=== PATIENT | female | born 1950 | race Caucasian/White ===

== ENCOUNTER 2018-02-18 15:02 | Emergency (ER) | payer OTHER, MEDICARE ==
[~2018-02-18] VITALS: Ht 157.5 cm; Wt 80.7 kg
[2018-02-18 15:05] VITALS: BP 151/100
--- NOTE | 2018-02-18 16:54 | RADIOLOGY REPORT ---
EXAMINATION: XR CHEST CLINICAL INFORMATION: Wheezing, dyspnea COMPARISON: None TECHNIQUE: 2 views of the chest were obtained. FINDINGS: Low lung volumes. No focal consolidation or mass. Normal pulmonary vascularity. No pleural effusion or pneumothorax. Normal heart size. Mildly tortuous aorta. Degenerative changes of the thoracic spine. Degenerative changes of the shoulders and acromioclavicular joints. IMPRESSION: Low lung volumes but no acute pulmonary disease. No focal consolidation to suggest pneumonia.
[2018-02-18] MEDS ORDERED: PROVENTIL HFA6.7 GM INH (17:18)
[2018-02-18] MEDS ORDERED: MEDROL4 M2 PO (17:18)
--- NOTE | 2018-02-18 17:19 | ED INFLUENZA/URI COMPLAINT ---
History of Present Illness General Chief Complaint: General Adult Stated Complaint: CHEST CONGESTION,WHEEZING Source: patient, family Exam Limitations: no limitations Vital Signs & Intake/Output Vital Signs & Intake/Output Vital Signs Date Time Temp Pulse Resp B/P B/P Pulse O2 O2 Flow FiO2 Mean Ox Delivery Rate 02/18 1607 Room Air 02/18 1505 98.8 100 18 151/100 98 Room Air Allergies Coded Allergies: No Known Allergies (02/18/18) Reconcile Medications Albuterol Sulfate (Proventil Hfa) 90 MCG HFA.AER.AD 2 PUF INH Q4 PRN wheezing Methylprednisolone. (Medrol) 4 MG TAB.DS.PK 1 DP PO AD bronchitis 6 on day 1 then reduce by one tablet daily until gone Triage Note: 67 YO FEMALE TO TRIAGE C/O WHEEZING, PRODUCTIVE COUGH. STATES RECENTLY BEING TREATED FOR R EAR INFECTION. AFEBRILE Triage Nurses Notes Reviewed? yes Onset: Gradual Duration: week(s): Timing: recent history Severity: moderate HPI: 67YO FEMALE with hx of hypothyroidism presents to ED complaining of cough, congestion, sore throat, ear pain. Patient is here with her who is also being evaluated for similar symptoms. Patient states he was seen in urgent care and started on antibiotics for possible ear infection. Reports her sore throat and ear pain have improved however cough is persistent. Patient also reports wheezing, worse at night. Patient denies abdominal pain, chest pain, vomiting, hemoptysis. (Nathalia ORTIZ,Aishwarya Paul) Past History Travel History Traveled to [place] past 21 day No Medical History Any Pertinent Medical History? see below for history Neurological: NONE EENT: allergies Cardiovascular: NONE Respiratory: NONE Gastrointestinal: NONE Hepatic: NONE Renal: NONE Musculoskeletal: NONE Psychiatric: NONE Endocrine: hypothyroidism Blood Disorders: NONE Cancer(s): NONE GROUP LEADER SEMICONDUCTOR TESTING/Reproductive: NONE Surgical History Surgical History: non-contributory Psychosocial History What is your primary language Citizen Of [place] Tobacco Use: Never used Family History Hx Contributory? No (Aishwarya Carter) Review of Systems Review of Systems Constitutional: Reports: no symptoms. EENTM: Reports: see HPI. Respiratory: Reports: see HPI. Cardiovascular: Reports: no symptoms. GI: Reports: no symptoms. Genitourinary: Reports: no symptoms. Musculoskeletal: Reports: no symptoms. Skin: Reports: no symptoms. Neurological/Psychological: Reports: no symptoms. Hematologic/Endocrine: Reports: no symptoms. Immunologic/Allergic: Reports: no symptoms. All Other Systems: Reviewed and Negative (Aishwarya Carter) Physical Exam Physical Exam General Appearance: well developed/nourished, no apparent distress, alert, awake Head: atraumatic, normal appearance Eyes: Bilateral: normal appearance. Ears, Nose, Throat: normal ENT inspection, moist mucous membrane, hearing grossly normal, Tympanic normal, pharynx normal Neck: normal inspection, supple, full range of motion Respiratory: normal breath sounds, no respiratory distress, lungs clear Cardiovascular: regular rate/rhythm Back: normal inspection, normal range of motion Extremities: normal inspection, normal range of motion Neurologic/Psych: awake, alert, oriented x 3 Skin: intact, normal color, warm/dry Core Measures Sepsis Present: No Sepsis Focused Exam Completed? No (Aishwarya Carter) Progress Differential Diagnosis: influenza, otitis, pneumonia, pharyngitis, sinusitis Plan of Care: Orders Procedure Date/time Status RAPID VIRAL INFLUENZA A 02/18 1632 Complete Laboratory Tests 02/18/18 1600: Sodium Cancelled, Potassium Cancelled, Chloride Cancelled, Carbon Dioxide Cancelled, Anion Gap Cancelled, BUN Cancelled, Creatinine Cancelled, BUN/ Creatinine Ratio Cancelled, Glucose Cancelled, Calcium Cancelled, Total Bilirubin Cancelled, AST Cancelled, ALT Cancelled, Alkaline Phosphatase Cancelled, Total Protein Cancelled, Albumin Cancelled, Globulin Cancelled, Albumin/Globulin Ratio Cancelled, CBC w Diff Cancelled, WBC Cancelled, RBC Cancelled, Hgb Cancelled, Hct Cancelled, MCV Cancelled, MCH Cancelled, MCHC Cancelled, RDW Cancelled, Plt Count Cancelled, MPV Cancelled Microbiology 02/18 1642 NASOPHARYN: Influenza Virus A & B Rapid Smear - COMP Chest x-ray is negative for pneumonia. Rapid flu swab is negative. Patient is oriented been treated with antibiotics for possible otitis media. No evidence of otitis media today. Patient's vital signs are stable, no acute distress, she is nontoxic appearing. Likley viral URI, possible bronchitis. PAtient prescribed short steroid course and inhaler regarding her symptoms. Patient agrees with the plan of care. Diagnostic Imaging: Viewed by Me: Radiology Read. Discussed w/RAD: Radiology Read. CXR Impression: PATIENT: SHAINA ROJAS PRESENT AGE: 67 PATIENT ACCOUNT NO: [id number] : 52 LOCATION: [facility] ORDERING PHYSICIAN: Aishwarya ORTIZ SERVICE DATE: 02/18/18 EXAM TYPE: RAD - XRY-CHEST XRAY, TWO VIEWS EXAMINATION: XR CHEST CLINICAL INFORMATION: Wheezing, dyspnea COMPARISON: None TECHNIQUE: 2 views of the chest were obtained. FINDINGS: Low lung volumes. No focal consolidation or mass. Normal pulmonary vascularity. No pleural effusion or pneumothorax. Normal heart size. Mildly tortuous aorta. Degenerative changes of the thoracic spine. Degenerative changes of the shoulders and acromioclavicular joints. IMPRESSION: Low lung volumes but no acute pulmonary disease. No focal consolidation to suggest pneumonia. DICTATED BY: Joseph Dunbar MD DATE/TIME DICTATED:02/18/181647 DRAW STRING KNOTTER: TAYA DATE/TIME TRANSCRIBED:02/18/181647 CONFIDENTIAL, DO NOT COPY WITHOUT APPROPRIATE AUTHORIZATION. <Electronically signed in Other Vendor System> SIGNED BY: Joseph Dunbar MD 02/18/181653 Initial ED EKG: none (Nathalia ORTIZ,Aishwarya Paul) Departure Departure Disposition: HOME OR SELF CARE Condition: Stable Clinical Impression Primary Impression: Wheezing Secondary Impressions: Cough Referrals: Max Kaufman MD (PCP/Family) Additional Instructions: Use inhaler as prescribed as needed for wheezing. Begin steroid pack today take full course of steroids. Follow-up with her primary care doctor. Return with worsening symptoms or concerns. Please note that there might be incidental findings in your evaluation that are unrelated to the current emergency department visit. Please notify your primary care doctor about this emergency department visit in order to obtain and review all of the testing performed so that these incidental findings can be monitored as needed. If you had an x-ray performed, please understand that some fractures may not be seen on the initial set of x-rays. If your symptoms persist you might need a repeat set of x-rays to check for such a fracture. If you had a laceration evaluated, please understand that foreign bodies such as glass or wood may not be visible to the naked eye or on plain x-rays. If the wound becomes red, swollen, increasingly more painful or if there is any drainage from the wound, please have it reevaluated by a physician for the possibility of a retained foreign body. If you're unable to follow up as outlined in the discharge instructions please return to the emergency department. Thank you for choosing the [facility] Emergency Department for your care. It was a pleasure to serve you today. Departure Forms: Customer Survey General Discharge Information Prescriptions: Current Visit Scripts Albuterol Sulfate (Proventil Hfa) 2 PUF INH Q4 PRN wheezing #1 INHAL Methylprednisolone. (Medrol) 1 DP PO AD #1 DP 6 on day 1 then reduce by one tablet daily until gone (Nathalia ORTIZ,Aishwaray Paul) PA/BOAT RENTAL CLERK Co-Sign Statement Statement: ED Attending supervision documentation- x I saw and evaluated the patient. I have also reviewed all the pertinent lab results and diagnostic results. I agree with the findings and the plan of care as documented in the PA's/BOAT RENTAL CLERK's documentation. [] I have reviewed the ED Record and agree with the PA's/BOAT RENTAL CLERK's documentation. [] Additions or exceptions (if any) to the PAs/BOAT RENTAL CLERK's note and plan are summarized below: [] (Stephan ONEAL,Marvin)
== END 2018-02-18 17:34 ==
LOC: ERH 15:02
DX: R06.2 Wheezing (principal); R05 Cough
CPT/HCPCS: 71046; 87804; 87804-59